=== PATIENT | female | born 1935 ===

== ENCOUNTER 2022-11-20 02:11 | Day surgery (SDC) | payer OTHER ==
[~2022-11-20 02:11] MED LIST: ALPR.25 PO
== END 2022-11-20 22:53 | disposition home or self-care (01) ==
LOC: WOUND 02:11
DX: S91.102A Unspecified open wound of left great toe without damage to nail, initial encounter (principal); M79.672 Pain in left foot; G90.09 Other idiopathic peripheral autonomic neuropathy; M86.072 Acute hematogenous osteomyelitis, left ankle and foot; L97.522 Non-pressure chronic ulcer of other part of left foot with fat layer exposed
CPT/HCPCS: G0463

== ENCOUNTER 2022-11-23 01:56 | Day surgery (SDC) | payer OTHER | END 2022-11-23 23:04 | disposition home or self-care (01) | LOC: WOUND 01:56 | DX: L97.522 Non-pressure chronic ulcer of other part of left foot with fat layer exposed (principal); S91.102A Unspecified open wound of left great toe without damage to nail, initial encounter; G90.09 Other idiopathic peripheral autonomic neuropathy; M86.072 Acute hematogenous osteomyelitis, left ankle and foot | CPT/HCPCS: G0463 ==

== ENCOUNTER 2022-11-25 05:27 | Day surgery (SDC) | payer OTHER | END 2022-11-25 22:59 | disposition home or self-care (01) | LOC: WOUND 05:27 | DX: L97.522 Non-pressure chronic ulcer of other part of left foot with fat layer exposed (principal); S91.102A Unspecified open wound of left great toe without damage to nail, initial encounter; G90.09 Other idiopathic peripheral autonomic neuropathy; M86.072 Acute hematogenous osteomyelitis, left ankle and foot | CPT/HCPCS: G0463 ==

== ENCOUNTER 2022-11-27 02:35 | Day surgery (SDC) | payer OTHER | END 2022-11-27 23:43 | disposition home or self-care (01) | LOC: WOUND 02:35 | DX: L97.522 Non-pressure chronic ulcer of other part of left foot with fat layer exposed (principal); G90.09 Other idiopathic peripheral autonomic neuropathy; M86.072 Acute hematogenous osteomyelitis, left ankle and foot | CPT/HCPCS: G0463 ==

== ENCOUNTER 2022-11-30 08:56 | Day surgery (SDC) | payer OTHER | END 2022-11-30 22:48 | disposition home or self-care (01) | LOC: WOUND 08:56 | DX: S91.102A Unspecified open wound of left great toe without damage to nail, initial encounter (principal); L97.522 Non-pressure chronic ulcer of other part of left foot with fat layer exposed; G90.09 Other idiopathic peripheral autonomic neuropathy; M86.072 Acute hematogenous osteomyelitis, left ankle and foot; X58.XXXA Exposure to other specified factors, initial encounter | CPT/HCPCS: G0463 ==

== ENCOUNTER 2022-12-02 01:44 | Day surgery (SDC) | payer OTHER | END 2022-12-02 22:51 | disposition home or self-care (01) | LOC: WOUND 01:44 | DX: L97.522 Non-pressure chronic ulcer of other part of left foot with fat layer exposed (principal); S91.102A Unspecified open wound of left great toe without damage to nail, initial encounter; M79.672 Pain in left foot; G90.09 Other idiopathic peripheral autonomic neuropathy; M86.072 Acute hematogenous osteomyelitis, left ankle and foot | CPT/HCPCS: G0463 ==

== ENCOUNTER 2022-12-04 01:45 | Day surgery (SDC) | payer OTHER | END 2022-12-04 22:41 | disposition home or self-care (01) | LOC: WOUND 01:45 | DX: L97.522 Non-pressure chronic ulcer of other part of left foot with fat layer exposed (principal); S91.102A Unspecified open wound of left great toe without damage to nail, initial encounter; G90.09 Other idiopathic peripheral autonomic neuropathy; M86.072 Acute hematogenous osteomyelitis, left ankle and foot; X58.XXXA Exposure to other specified factors, initial encounter | CPT/HCPCS: G0463 ==

== ENCOUNTER 2022-12-07 00:19 | Day surgery (SDC) | payer OTHER | END 2022-12-07 22:50 | disposition home or self-care (01) | LOC: WOUND 00:19 | DX: S91.102A Unspecified open wound of left great toe without damage to nail, initial encounter (principal); L97.522 Non-pressure chronic ulcer of other part of left foot with fat layer exposed; G90.09 Other idiopathic peripheral autonomic neuropathy; M86.072 Acute hematogenous osteomyelitis, left ankle and foot; M86.679 Other chronic osteomyelitis, unspecified ankle and foot | CPT/HCPCS: A9270; G0463 ==

== ENCOUNTER 2022-12-09 00:31 | Day surgery (SDC) | payer OTHER | END 2022-12-09 23:32 | disposition home or self-care (01) | LOC: WOUND 00:31 | DX: L97.522 Non-pressure chronic ulcer of other part of left foot with fat layer exposed (principal); S91.102A Unspecified open wound of left great toe without damage to nail, initial encounter; G90.09 Other idiopathic peripheral autonomic neuropathy; M86.679 Other chronic osteomyelitis, unspecified ankle and foot | CPT/HCPCS: G0463 ==

== ENCOUNTER 2022-12-11 01:49 | Day surgery (SDC) | payer OTHER | END 2022-12-11 22:34 | disposition home or self-care (01) | LOC: WOUND 01:49 | DX: L97.522 Non-pressure chronic ulcer of other part of left foot with fat layer exposed (principal); S91.102A Unspecified open wound of left great toe without damage to nail, initial encounter; M79.672 Pain in left foot; G90.09 Other idiopathic peripheral autonomic neuropathy; M86.679 Other chronic osteomyelitis, unspecified ankle and foot | CPT/HCPCS: G0463 ==

== ENCOUNTER 2022-12-14 00:04 | Day surgery (SDC) | payer OTHER | END 2022-12-14 22:52 | disposition home or self-care (01) | LOC: WOUND 00:04 | DX: S91.102A Unspecified open wound of left great toe without damage to nail, initial encounter (principal); L97.522 Non-pressure chronic ulcer of other part of left foot with fat layer exposed; G90.09 Other idiopathic peripheral autonomic neuropathy; M86.072 Acute hematogenous osteomyelitis, left ankle and foot; M86.9 Osteomyelitis, unspecified; M86.679 Other chronic osteomyelitis, unspecified ankle and foot; X58.XXXA Exposure to other specified factors, initial encounter ==

== ENCOUNTER 2022-12-16 00:39 | Day surgery (SDC) | payer OTHER | END 2022-12-16 22:42 | disposition home or self-care (01) | LOC: WOUND 00:39 | DX: M86.672 Other chronic osteomyelitis, left ankle and foot (principal); L97.522 Non-pressure chronic ulcer of other part of left foot with fat layer exposed; S91.102A Unspecified open wound of left great toe without damage to nail, initial encounter; M79.672 Pain in left foot; G90.09 Other idiopathic peripheral autonomic neuropathy | CPT/HCPCS: G0463 ==

== ENCOUNTER 2022-12-18 01:13 | Day surgery (SDC) | payer OTHER | END 2022-12-19 22:39 | disposition home or self-care (01) | LOC: WOUND 01:13 | DX: S91.102A Unspecified open wound of left great toe without damage to nail, initial encounter (principal); L97.522 Non-pressure chronic ulcer of other part of left foot with fat layer exposed; G90.09 Other idiopathic peripheral autonomic neuropathy; M86.679 Other chronic osteomyelitis, unspecified ankle and foot | CPT/HCPCS: G0463 ==

== ENCOUNTER 2022-12-23 08:00 | Day surgery (SDC) | payer OTHER | END 2022-12-23 23:59 | disposition home or self-care (01) | LOC: WOUND 08:00 | DX: E11.621 Type 2 diabetes mellitus with foot ulcer (principal); L97.513 Non-pressure chronic ulcer of other part of right foot with necrosis of muscle; L03.115 Cellulitis of right lower limb; M86.171 Other acute osteomyelitis, right ankle and foot; E11.40 Type 2 diabetes mellitus with diabetic neuropathy, unspecified; I70.203 Unspecified atherosclerosis of native arteries of extremities, bilateral legs; E11.22 Type 2 diabetes mellitus with diabetic chronic kidney disease; N18.2 Chronic kidney disease, stage 2 (mild) ==

== ENCOUNTER 2022-12-25 00:13 | Day surgery (SDC) | payer OTHER | END 2022-12-25 23:03 | disposition home or self-care (01) | LOC: WOUND 00:13 | DX: L97.522 Non-pressure chronic ulcer of other part of left foot with fat layer exposed (principal); G90.09 Other idiopathic peripheral autonomic neuropathy; M86.679 Other chronic osteomyelitis, unspecified ankle and foot; S91.102D Unspecified open wound of left great toe without damage to nail, subsequent encounter | CPT/HCPCS: G0463 ==

== ENCOUNTER 2022-12-28 00:16 | Day surgery (SDC) | payer OTHER | END 2022-12-28 22:36 | disposition home or self-care (01) | LOC: WOUND 00:16 | DX: L97.522 Non-pressure chronic ulcer of other part of left foot with fat layer exposed (principal); S91.102A Unspecified open wound of left great toe without damage to nail, initial encounter; G90.09 Other idiopathic peripheral autonomic neuropathy; M86.672 Other chronic osteomyelitis, left ankle and foot | CPT/HCPCS: G0463 ==

== ENCOUNTER 2022-12-30 00:33 | Day surgery (SDC) | payer OTHER | END 2022-12-30 23:25 | disposition home or self-care (01) | LOC: WOUND 00:33 | DX: L97.522 Non-pressure chronic ulcer of other part of left foot with fat layer exposed (principal); S91.102A Unspecified open wound of left great toe without damage to nail, initial encounter; M79.672 Pain in left foot; G90.09 Other idiopathic peripheral autonomic neuropathy; M86.672 Other chronic osteomyelitis, left ankle and foot | CPT/HCPCS: G0463 ==

== ENCOUNTER → 2023-06-02 | Outpatient (CLI) | payer OTHER | LOC: LAB SHORT 15:30 → LAB 15:30 | DX: L08.9 Local infection of the skin and subcutaneous tissue, unspecified (principal) | CPT/HCPCS: 87070; 87077; 87147; 87186; 87205 ==